=== PATIENT | female | born 1940 | race Caucasian/White ===

== ENCOUNTER 2017-01-03 09:59 | Emergency (ER) | payer MEDICARE, BC ==
[2017-01-03 10:03] VITALS: RESP 20
[2017-01-03] MEDS ORDERED: KETOROLAC 30 MG/ML 1 ML VIAL IM STA (10:21)
[2017-01-03] MEDS ORDERED: HYDROcodone/APAP 5-325MG 1 EACH TAB PO STA (10:22)
--- NOTE | 2017-01-03 10:32 | ED ---
General Adult HPI - General Chief complaint: Extremity Problem,Nontraumatic Stated complaint: knee pain Time Seen by Provider: 01/03/17 10:09 Source: patient Mode of arrival: wheelchair Limitations: no limitations - History of Present Illness Initial comments: 76-year-old female presented for evaluation of left knee pain that started in the night. She denies any trauma yesterday or overexertion and states she has no recollection of an injury while sleeping. She does have a past medical history of prior knee surgery and on her last MRI that showed a left posterior medial meniscus tear. Patient denies any numbness, tingling, lower extremity weakness, discoloration, poikilothermia to the distal extremity. She is unable to fully extend or flex the knee. There is no soft tissue tenderness, redness, erythema. - Related Data Home Medications Medication Instructions Recorded Confirmed Acetaminophen Tab [Tylenol] 1,000 mg PO Q6HR PRN 06/19/15 06/19/15 Areds 1 tab PO DAILY 06/19/15 06/19/15 Calcium Carbonate/Vitamin D3 1 tab PO DAILY 06/19/15 06/19/15 [Calcium 600-Vit D3 400 Tablet] Leg Cramps 1 tab PO DAILY 06/19/15 06/19/15 Propylene Glycol/Peg 400/Pf 1 drop BOTH EYES DAILY 06/19/15 06/19/15 [Systane 0.3-0.4% Eye Drops] Zolpidem Tartrate [Ambien Cr] 12.5 mg PO HS 06/19/15 06/19/15 rOPINIRole HCL [Requip] 2 mg PO HS 06/19/15 06/19/15 Previous Rx's Medication Instructions Recorded Artificial Tears-Hypromellose 1 drops BOTH EYES DAILY bottle 06/20/15 [Artificial Tear Drops] Aspirin EC [Ecotrin] 325 mg PO DAILY tablet. 06/20/15 Calcium Carb-Vit D 500Mg-200Un 1 each PO DAILY@1200 tab 06/20/15 [Oscal 500+D] rOPINIRole HCL [Requip] 2 mg PO HS tab 06/20/15 HYDROcodone/APAP 5-325MG [[place] 1 - 2 tab PO Q6HR PRN #14 tab 01/03/17 5-325] Ibuprofen [Motrin] 800 mg PO Q8HR PRN #20 tab 01/03/17 Allergies Allergy/AdvReac Type Severity Reaction Status Date / Time codeine Allergy Unknown Verified 01/03/17 10:03 Review of Systems ROS Statement: Those systems with pertinent positive or pertinent negative responses have been documented in the HPI. ROS Other: All systems not noted in ROS Statement are negative. Constitutional: Denies: fever, chills, weakness, weight change Eyes: Denies: eye pain, eye discharge ENT: Denies: ear pain, throat pain Respiratory: Denies: cough, dyspnea, wheezes Cardiovascular: Denies: chest pain, palpitations Endocrine: Denies: fatigue, polydipsia, polyuria Gastrointestinal: Denies: abdominal pain, nausea, vomiting Genitourinary: Denies: urgency, dysuria, frequency, hematuria Musculoskeletal: Reports: arthralgia, other (Left medial knee joint line pain). Denies: back pain Skin: Denies: rash, lesions Neurological: Denies: headache, weakness Psychiatric: Denies: anxiety, depression Past Medical History Past Medical History: Chest Pain / Angina Additional Past Medical History / Comment(s): 06/19/[address] [facility] via EMS for mild chest heaviness and L jaw pain which was worse. She had some radiation down R arm, mildly SOB and mildly nauseated. She also has a headache. Other HX: headaches, restless leg syndrome-bilateral thighs cramp at night, cervical arthiritis, bilateral shoulder pain, R knee arthiritis, chest pain in the past with negative stress tests in 2006 and 2010 History of Any Multi-Drug Resistant Organisms: None Reported Past Surgical History: Appendectomy Additional Past Surgical History / Comment(s): Bilateral cataract removal with lens implants, R knee arthroscopies, R knee injections, colonoscopies-normal. Past Anesthesia/Blood Transfusion Reactions: No Reported Reaction Additional Past Anesthesia/Blood Transfusion Reaction / Comment(s): Pt has never recieved blood Past Psychological History: No Psychological Hx Reported Additional Psychological History / Comment(s): Pt resides with her spouse. She is independent. She drives. Smoking Status: Former smoker Past Alcohol Use History: Occasional Additional Past Alcohol Use History / Comment(s): Pt states she started smoking at age 22 yrs (2) and quit in 1994. Past Drug Use History: None Reported - Past Family History Father Family Medical History: Myocardial Infarction ([place]) Additional Family Medical History / Comment(s): Father of a massive [place] at age 69yrs. Mother Family Medical History: Dementia Additional Family Medical History / Comment(s): Mother is alive and is 97yrs old. General Exam Limitations: no limitations General appearance: alert, in no apparent distress Head exam: Present: atraumatic, normocephalic Eye exam: Present: normal appearance, PERRL, EOMI ENT exam: Present: normal exam, normal oropharynx, mucous membranes moist Neck exam: Present: normal inspection. Absent: tenderness, meningismus Respiratory exam: Present: normal lung sounds bilaterally. Absent: respiratory distress, wheezes, rales Cardiovascular Exam: Present: regular rate, normal rhythm. Absent: bradycardia , tachycardia, irregular rhythm GI/Abdominal exam: Present: soft. Absent: distended, tenderness, guarding, rebound, rigid Rectal exam: Present: deferred Extremities exam: Present: other (Decreased range of motion to the left knee in both flexion and extension, tenderness to palpation along the medial aspect of the joint line, no overlying swelling or erythema). Absent: normal inspection, full ROM, tenderness, normal capillary refill, calf tenderness Back exam: Present: normal inspection, full ROM Neurological exam: Present: alert, oriented X3, CN II-XII intact, normal gait. Absent: altered Psychiatric exam: Present: normal affect, normal mood Skin exam: Present: warm, dry, intact Course Vital Signs 01/03/17 10:01 Temperature 97.5 F L Pulse Rate 89 Respiratory 20 Rate Blood Pressure 106/56 O2 Sat by Pulse 99 Oximetry Medical Decision Making - Medical Decision Making 76 year female presented for evaluation of left knee pain with decreased range of motion that started in the middle the night. She denies any injuries yesterday or while she was sleeping. She does have a history of previous knee surgery with and her last MRI showed a left posterior medial knee meniscus tear. On physical examination she has decreased range of motion to flexion and extension and tenderness to palpation along the medial aspect of the joint line. We'll obtain x-ray and provide Toradol and [place] for pain control. Left knee x-ray shows mild changes of osteoarthritis with small concomitant effusion no acute osseous lesions seen and there are remodeling changes in the medial compartment. Given the sinus we'll place patient in knee immobilizer and given prescription for pain control with instructions to follow-up with Dr. wasserman on Thursday. She is further advised to return to this facility if her symptoms should worsen or persist. Patient acknowledged an understanding of this information and agreed with this plan of care. Disposition Clinical Impression: Knee pain, acute, Knee effusion, left Disposition: HOME SELF-CARE Condition: Stable Instructions: Meniscus Tear (ED) Additional Instructions: Please use medication as discussed. Please follow up with family doctor if symptoms have not improved over the next two days. Please return to the emergency room if your symptoms increase or worsen or for any other concerns. Prescriptions: HYDROcodone/APAP 5-325MG [[place] 5-325] 1 - 2 tab PO Q6HR PRN #14 tab PRN Reason: Analgesia Ibuprofen [Motrin] 800 mg PO Q8HR PRN #20 tab PRN Reason: Analgesia Time of Disposition: 11:30
--- NOTE | 2017-01-03 11:07 | XR ---
EXAMINATION TYPE: XR knee complete LT DATE OF EXAM ORDERED: 01/03/2017 10:45 AM HISTORY: Pain. COMPARISON: None. FINDINGS: There is mild medial joint space loss. There is evidence of chondrocalcinosis. No acute os seous lesion is seen. There are remodeling changes in the medial compartment. A small joint effusion is seen. IMPRESSION: MILD CHANGES OF OSTEOARTHRITIS WITH A SMALL CONCOMITANT EFFUSION.
[2017-01-03 11:47] VITALS: BP 103/52; PULSE 82; TEMP 97.2
== END 2017-01-03 11:47 | disposition home or self-care (01) ==
LOC: EC 09:59
DX: M25.562 Pain in left knee (principal); M25.462 Effusion, left knee; M17.12 Unilateral primary osteoarthritis, left knee; G25.81 Restless legs syndrome; Z79.82 Long term (current) use of aspirin; Z88.5 Allergy status to narcotic agent; Z87.891 Personal history of nicotine dependence
CPT/HCPCS: 99283; 96372; 73562; L1830; J1885; 96374

== ENCOUNTER 2017-11-03 00:37 | Emergency (ER) | payer MEDICARE, BC ==
[2017-11-03 00:55] VITALS: RESP 16
[2017-11-03] MEDS ORDERED: SODIUM CHLORIDE 0.9% 500 ML IV ONE (01:11)
[2017-11-03] MEDS ORDERED: DIAZEPAM 5 MG/ML 2 ML INJ IVP STA (01:12)
--- NOTE | 2017-11-03 01:47 | XR ---
EXAMINATION TYPE: XR Hip RT and AP Pelvis DATE OF EXAM: 11/03/2017 COMPARISON: 10/29/2010 HISTORY: Fall and hip pain TECHNIQUE: A single AP view of the pelvis is obtained. Two views of the right hip are obtained. FINDINGS: The pelvic ring is intact. Proximal right femur and hip joint are intact. Sacroiliac joint s appear normal. Right hip joint space is normal. CONCLUSION: No acute abnormality of the pelvis and right hip. No change.
--- NOTE | 2017-11-03 02:03 | CT ---
EXAMINATION TYPE: CT brain dragan pacheco DATE OF EXAM: 11/03/2017 COMPARISON: 06/19/[address] scan HISTORY: fall and hit head on nightstand [address] DLP: 1476.40 mGycm Automated exposure control for dose reduction was used. TECHNIQUE: CT scan of the head and cervical spine are performed without contrast. FINDINGS: Ventricles have normal size. There is no mass effect nor midline shift. There is no sign of intracranial hemorrhage. There is choroid plexus calcification. The calvarium is intact. Cervical vertebra have fairly normal alignment. There is narrowing and spurring at C5-6. The posterio r elements are intact. There is mild multilevel hypertrophic facet arthropathy. There is facet ankylo sis at C3-4. The skull base is intact. I see no fracture. IMPRESSION: Negative CT scan of the brain. No change. Mild spondylotic changes in the cervical spine. No fracture.
[2017-11-03] MEDS ORDERED: KETOROLAC 30 MG/ML 1 ML VIAL IVP STA (02:08)
--- NOTE | 2017-11-03 03:33 | ED ---
Fall HPI - General Chief Complaint: Fall Stated Complaint: Fall Time Seen by Provider: 11/03/17 00:59 Source: EMS Mode of arrival: EMS - History of Present Illness Initial Comments: 77-year-old female patient presents to the emergency department today for evaluation of headache, right-sided neck pain, and right hip pain. Patient reports that 2 days ago she did experience a fall in her bedroom. She states that she got up in the night with the lights out, states that she tripped over the end of the bed and did fall striking her head on the nightstand. She denies any loss of consciousness at the time of injury. States that she felt relatively well and therefore did not seek treatment at that time. She states that over the last couple of days however her symptoms have worsened. She states that she has had a headache throughout the day today. States she has right-sided neck pain that worsens with any type of movement. She is also reporting some right hip pain. She denies any nausea or vomiting. Denies any photophobia, sound sensitivity, blurred vision, or double vision. She denies any numbness, tingling, or pain radiation to her upper extremities. Patient denies any chest pain, shortness of breath, dizziness, weakness, abdominal pain , or difficulties with bowel movements or urination. - Related Data Home Medications Medication Instructions Recorded Confirmed Acetaminophen Tab [Tylenol] 1,000 mg PO Q6HR PRN 06/19/15 06/19/15 Areds 1 tab PO DAILY 06/19/15 06/19/15 Calcium Carbonate/Vitamin D3 1 tab PO DAILY 06/19/15 06/19/15 [Calcium 600-Vit D3 400 Tablet] Leg Cramps 1 tab PO DAILY 06/19/15 06/19/15 Propylene Glycol/Peg 400/Pf 1 drop BOTH EYES DAILY 06/19/15 06/19/15 [Systane 0.3-0.4% Eye Drops] Zolpidem Tartrate [Ambien Cr] 12.5 mg PO HS 06/19/15 06/19/15 rOPINIRole HCL [Requip] 2 mg PO HS 06/19/15 06/19/15 Previous Rx's Medication Instructions Recorded Artificial Tears-Hypromellose 1 drops BOTH EYES DAILY bottle 06/20/15 [Artificial Tear Drops] Aspirin EC [Ecotrin] 325 mg PO DAILY tablet. 06/20/15 Calcium Carb-Vit D 500Mg-200Un 1 each PO DAILY@1200 tab 06/20/15 [Oscal 500+D] rOPINIRole HCL [Requip] 2 mg PO HS tab 06/20/15 HYDROcodone/APAP 5-325MG [[place] 1 - 2 tab PO Q6HR PRN #14 tab 01/03/17 5-325] Ibuprofen [Motrin] 800 mg PO Q8HR PRN #20 tab 01/03/17 Diazepam [Valium] 5 mg PO BID #6 tab 11/03/17 Allergies Allergy/AdvReac Type Severity Reaction Status Date / Time codeine Allergy Unknown Verified 01/03/17 10:03 Review of Systems ROS Statement: Those systems with pertinent positive or pertinent negative responses have been documented in the HPI. ROS Other: All systems not noted in ROS Statement are negative. Past Medical History Past Medical History: Chest Pain / Angina Additional Past Medical History / Comment(s): 06/19/15 Pt presented to [facility] ER via EMS for mild chest heaviness and L jaw pain which was worse. She had some radiation down R arm, mildly SOB and mildly nauseated. She also has a headache. Other HX: headaches, restless leg syndrome-bilateral thighs cramp at night, cervical arthiritis, bilateral shoulder pain, R knee arthiritis, chest pain in the past with negative stress tests in 2006 and 2010 History of Any Multi-Drug Resistant Organisms: None Reported Past Surgical History: Appendectomy Additional Past Surgical History / Comment(s): Bilateral cataract removal with lens implants, R knee arthroscopies, R knee injections, colonoscopies-normal. Past Anesthesia/Blood Transfusion Reactions: No Reported Reaction Additional Past Anesthesia/Blood Transfusion Reaction / Comment(s): Pt has never recieved blood Past Psychological History: No Psychological Hx Reported Smoking Status: Former smoker Past Alcohol Use History: Occasional Past Drug Use History: None Reported - Past Family History Father Family Medical History: Myocardial Infarction ([place]) Additional Family Medical History / Comment(s): Father of a massive [place] at age 69yrs. Mother Family Medical History: Dementia Additional Family Medical History / Comment(s): Mother is alive and is 97yrs old. General Exam Limitations: no limitations General appearance: alert, in no apparent distress, other (This is a well- developed, well-nourished adult female patient in no acute distress. Vital signs upon presentation were temperature 97.9F, pulse 78, respirations 16, blood pressure 121/76, pulse ox 95% on room air.) Head exam: Present: atraumatic, normocephalic, normal inspection Eye exam: Present: normal appearance, PERRL, EOMI. Absent: scleral icterus, conjunctival injection, nystagmus, periorbital swelling ENT exam: Present: normal exam, normal oropharynx, mucous membranes moist, TM's normal bilaterally Neck exam: Present: normal inspection, tenderness (Right-sided neck tenderness) , full ROM. Absent: meningismus, lymphadenopathy Respiratory exam: Present: normal lung sounds bilaterally. Absent: respiratory distress, wheezes, rales, rhonchi, stridor Cardiovascular Exam: Present: regular rate, normal rhythm, normal heart sounds. Absent: systolic murmur, diastolic murmur, rubs, gallop, clicks GI/Abdominal exam: Present: soft, normal bowel sounds. Absent: distended, tenderness, guarding, rebound, rigid Extremities exam: Present: normal inspection, full ROM, tenderness (Tenderness over the right posterior hip), normal capillary refill, other (Skin to the lower extremities is pink, warm, and dry. Cap refills less than 3 seconds. Pedal and posttibial pulses are 2+ and equal bilaterally. No evidence of ecchymosis, erythema, or swelling over the right hip joint. Skin to the upper extremities is pink, warm, and dry. Cap refills less than 3 seconds. Radial pulses are 2+ and equal bilaterally.). Absent: pedal edema, joint swelling, calf tenderness Back exam: Present: normal inspection. Absent: vertebral tenderness Neurological exam: Present: alert, oriented X3, CN II-XII intact, other ( Strength in all 4 extremities is 5/5.) Psychiatric exam: Present: normal affect, normal mood Skin exam: Present: warm, dry, intact, normal color. Absent: rash Course Vital Signs 11/03/17 11/03/17 00:50 03:59 Temperature 97.9 F 97.7 F Pulse Rate 78 79 Respiratory 16 16 Rate Blood Pressure 121/76 119/56 O2 Sat by Pulse 95 95 Oximetry Medical Decision Making - Medical Decision Making 77-year-old female patient presents to the emergency department today for complaints of headache, right-sided neck pain, and right hip pain after a fall couple of days ago. Physical examination did reveal some right-sided neck tenderness. She also did have some posterior hip tenderness on the right. There is no evidence of ecchymosis. No bony abnormalities. CT of the brain and C-spine were obtained and showed no acute osseous abnormalities, no acute intracranial abnormalities. X-ray of the right hip and pelvis was obtained and showed no acute osseous abnormalities. Patient did receive IV Valium and Toradol here in the department as well as 500 mL of normal saline. She did report improvement in her symptoms. I did discuss with her that she more likely has a cervical strain related to the fall. I discussed application of heat with her. They gave her prescription of Valium to take for the next couple of days per she is instructed to follow-up with her primary care physician for recheck soon. She is instructed to return here immediately for any new, worsening, or concerning symptoms. She verbalizes understanding and agrees with this plan. - Radiology Data Radiology results: report reviewed, image reviewed A single AP view of the pelvis and 2 views of the right hip are obtained. Findings show the pelvic ring is intact. Proximal right femur and hip joint are intact. Sacroiliac joints appear normal. Right hip joint spaces normal. Conclusion by Dr. Lao shows no acute abnormality of the pelvis and right hip. No change. CT of the brain and C-spine without contrast are obtained. Report was reviewed in its entirety. Impression by Dr. Lao shows negative computed tomography scan of the brain. No change. Mild spondylotic changes in the cervical spine. No fracture. Disposition Clinical Impression: Neck strain, Contusion, hip Disposition: HOME SELF-CARE Condition: Good Instructions: Cervical Strain (ED), Fall Prevention for Older Adults (ED), Hip Contusion (ED) Additional Instructions: Take medications as directed. Follow-up with her primary care physician for recheck in 1-2 days. Return here immediately for any new, worsening, or concerning symptoms. Prescriptions: Diazepam [Valium] 5 mg PO BID #6 tab Referrals: Sanjay Solo MD [Primary Care Provider] - 1-2 days Time of Disposition: 03:32
[2017-11-03 04:00] VITALS: BP 119/56; PULSE 79; TEMP 97.7
--- NOTE | 2017-11-05 08:39 | CDI ---
Documentation Clarification OP Dear Janette Cardenas, NPC Please do addendum to missing hip contusion specific(LT/RT) location Thank you, Mac Barron Time Piece Repairer If you have any questions, please contact Cephalometric Analyst at [phone] [facility]
== END 2017-11-03 04:05 | disposition home or self-care (01) ==
LOC: EC 00:37
DX: S16.1XXA Strain of muscle, fascia and tendon at neck level, initial encounter (principal); S70.01XA Contusion of right hip, initial encounter; Z79.899 Other long term (current) drug therapy; Z88.5 Allergy status to narcotic agent; Z87.891 Personal history of nicotine dependence; W01.198A Fall on same level from slipping, tripping and stumbling with subsequent striking against other object, initial encounter; Y92.003 Bedroom of unspecified non-institutional (private) residence as the place of occurrence of the external cause
CPT/HCPCS: 99284; 96374; 96375; 96361; 73502; 72125; 70450; J3360; J1885

== ENCOUNTER → 2017-12-10 | Outpatient (CLI) | payer MEDICARE, BC ==
[2017-12-10 10:10] LABS: Basophils % (A) 1 %; Eosinophils # (A) 0.1 k/uL (0-0.7); Eosinophils % (A) 1 %; HCT 40.1 % (34.0-46.0); Lymphocytes # (A) 1.5 k/uL (1.0-4.8); Lymphocytes % (A) 24 %; MCHC 32.4 g/dL (31.0-37.0); MCV 95.9 fL (80.0-100.0); Mean Platelet Volume 7.3; Monocytes # (A) 0.5 k/uL (0-1.0); Monocytes % (A) 8 %; Neutrophils # (A) 3.9 k/uL (1.3-7.7); Neutrophils % (A) 65 %; Platelet Count 220 k/uL (150-450); RBC 4.18 m/uL (3.80-5.40); RDW 13.5 % (11.5-15.5); WBC 6.1 k/uL (3.8-10.6)
[2017-12-10 10:20] LABS: ALT 34 U/L (9-52); AST 26 U/L (14-36); Albumin 4.1 g/dL (3.5-5.0); Alkaline Phosphatase 103 U/L (38-126); Anion Gap 8 mmol/L; Blood Urea Nitrogen 23 mg/dL (7-17); Calcium 9.7 mg/dL (8.4-10.2); Carbon Dioxide 31 mmol/L (22-30); Chloride 102 mmol/L (98-107); Glucose 103 mg/dL (74-99); Sodium 141 mmol/L (137-145); Total Protein 6.8 g/dL (6.3-8.2)
[2017-12-10 10:23] LABS: Potassium 5.8 mmol/L (3.5-5.1)
--- NOTE | 2017-12-10 12:07 | MR ---
MRI CERVICAL SPINE: CLINICAL HISTORY: Cervical disc degenerative disease (M50.30) per order. Headache with neck pain for 6 years per patient. TECHNIQUE: Multiplanar, multisequence imaging of the cervical spine is performed without IV contrast. COMPARISON: MRI cervical spine June 05, 2011. CT cervical spine November 03, 2017. FINDINGS: Sagittal images of the cervical spine show the craniocervical junction to appear within nor mal limits. The cervical and upper thoracic spinal cord is normal in course, caliber, and signal. V ertebral alignment is straightened. There is slight grade 1 retrolisthesis of C5 on C6. The vertebra l body heights are normal. Moderate disc space narrowing C5-C6 level redemonstrated. No significant posterior disc herniations are seen on sagittal images in the cervical spine. There is disc herniatio n T1-T2 level mildly effacing anterior thecal sac on sagittal image 6. The bone marrow signal intensi ty is within normal limits. No suspicious postcontrast enhancement is seen. There is mild to moderate multilevel anterior spurring noted. Axial images at C2-C3 level show uncovertebral facet degenerative changes bilaterally but spinal chucky l is preserved and bilateral neural foramina are patent. Axial images at C3-C4 level show right greater than left uncovertebral facet degenerative changes mario aterally. Spinal canal is preserved. Bilateral neural foramina are patent. Axial images at C4-C5 level show right-sided uncovertebral facet degenerative changes causing mild ri ght-sided neural foraminal narrowing. Left-sided neural foramen is patent. Spinal canal is preserved. Axial images at C5-C6 level show broad-based right spur disc complex mildly effacing anterolateral th ecal sac with left greater than right uncovertebral facet degenerative changes causing mild bilateral neural foraminal narrowing. Axial images at C6-C7 level show uncovertebral facet degenerative changes bilaterally with right para central disc protrusion mildly effacing anterior thecal sac, bilateral neural foramina are patent. Axial images at C7-T1 level are felt within normal limits. There is partial visualization of 1.0 cm right thyroid nodule axial image 1 with only subcentimeter calcified nodule noted on recent CT. Consider thyroid ultrasound follow-up to better evaluate and diamond racterize thyroid gland. IMPRESSION: Straightening of cervical spine with multilevel degenerative changes seen as detailed ab ove. Multilevel bilateral uncovertebral facet arthropathy is noted as detailed above.
== END | disposition home or self-care (01) ==
LOC: RADMRIMAIN 09:41
PROVIDERS: ATTEND Internal Medicine
DX: M47.812 Spondylosis without myelopathy or radiculopathy, cervical region (principal); M46.82 Other specified inflammatory spondylopathies, cervical region; M43.8X2 Other specified deforming dorsopathies, cervical region; I10 Essential (primary) hypertension; E78.2 Mixed hyperlipidemia
CPT/HCPCS: 80053; 85025; 72156; 36415; A9581

== ENCOUNTER 2018-12-14 11:35 | Emergency (ER) | payer MEDICARE, BC ==
[2018-12-14] MEDS ORDERED: IPRATROPIUM-ALBUTEROL 3 ML NEB INHALATION STA ×2 (12:38→14:10)
[2018-12-14] MEDS ORDERED: SODIUM CHLORIDE 0.9% 1,000 ML IV STA (12:38)
[2018-12-14] MEDS ORDERED: methylPREDNISolone SOD SUCCI 125 MG/2 ML VIAL IV STA (12:38)
--- NOTE | 2018-12-14 12:41 | ED ---
General Adult HPI - General Chief complaint: Shortness of Breath Stated complaint: Cough Time Seen by Provider: 12/14/18 12:31 Source: patient, RN notes reviewed Mode of arrival: wheelchair Limitations: no limitations - History of Present Illness Initial comments: Patient 78-year-old female presented to the emergency room today with a chief complaint of increased cough congestion over the last for 5 days. Patient does admit that she's had a tickle back of her throat is having increased cough. States she's had increased congestion. States very little sputum production. Patient denies any other complaints or symptoms. Patient states she is not a smoker. Patient denies any recent fever, chills, shortness of breath, chest pain, back pain, abdominal pain, nausea or vomiting, numbness or tingling, headaches or visual changes, or any other complaints. - Related Data Home Medications Medication Instructions Recorded Confirmed Zolpidem Tartrate [Ambien Cr] 12.5 mg PO HS 06/19/15 12/14/18 rOPINIRole HCL [Requip] 2 mg PO HS 06/19/15 12/14/18 Previous Rx's Medication Instructions Recorded Albuterol Inhaler [Ventolin Hfa 1 - 2 puff INHALATION Q4-6H PRN #1 12/14/18 Inhaler] inhaler Azithromycin [Zithromax Z-pack] 0 mg PO DIRECTED #6 tab 12/14/18 predniSONE 50 mg PO DAILY #5 tab 12/14/18 Allergies Allergy/AdvReac Type Severity Reaction Status Date / Time codeine Allergy Unknown Verified 12/14/18 14:05 Penicillins Allergy Unknown Verified 12/14/18 14:05 Review of Systems ROS Statement: Those systems with pertinent positive or pertinent negative responses have been documented in the HPI. ROS Other: All systems not noted in ROS Statement are negative. Past Medical History Past Medical History: Chest Pain / Angina Additional Past Medical History / Comment(s): 06/19/15 Pt presented to [facility] ER via EMS for mild chest heaviness and L jaw pain which was worse. She had some radiation down R arm, mildly SOB and mildly nauseated. She also has a headache. Other HX: headaches, restless leg syndrome-bilateral thighs cramp at night, cervical arthiritis, bilateral shoulder pain, R knee arthiritis, chest pain in the past with negative stress tests in 2006 and 2010 History of Any Multi-Drug Resistant Organisms: None Reported Past Surgical History: Appendectomy Additional Past Surgical History / Comment(s): Bilateral cataract removal with lens implants, R knee arthroscopies, R knee injections, colonoscopies-normal. Past Anesthesia/Blood Transfusion Reactions: No Reported Reaction Additional Past Anesthesia/Blood Transfusion Reaction / Comment(s): Pt has never recieved blood Past Psychological History: No Psychological Hx Reported Smoking Status: Former smoker Past Alcohol Use History: Occasional Past Drug Use History: None Reported - Past Family History Father Family Medical History: Myocardial Infarction (OR) Additional Family Medical History / Comment(s): Father of a massive OR at age 69yrs. Mother Family Medical History: Dementia Additional Family Medical History / Comment(s): Mother is alive and is 97yrs old. General Exam - General Exam Comments Initial Comments: General: The patient is awake and alert, in no distress, and does not appear acutely ill. Eye: There is normal conjunctiva bilaterally. No signs of icterus. Ears, nose, mouth and throat: There are moist mucous membranes and no oral lesions. Neck: The neck is supple, there is no tenderness or JVD. Cardiovascular: There is a regular rate and rhythm. No murmur, rub or gallop is appreciated. Respiratory: Bilateral expiratory wheeze. respirations are non-labored, breath sounds are equal. No stridor, rales, or rhonchi. Musculoskeletal: Normal ROM, no tenderness. Neurological: A&O x 3. CN II-XII intact, There are no obvious motor or sensory deficits. Coordination appears grossly intact. Speech is normal. Skin: Skin is warm and dry and no rashes or lesions are noted. Psychiatric: Cooperative, appropriate mood & affect, normal judgment. Limitations: no limitations Course Vital Signs 12/14/18 12/14/18 12/14/18 12:17 12:52 13:01 Temperature 98.3 F Pulse Rate 93 77 79 Respiratory 18 Rate Blood Pressure 101/64 O2 Sat by Pulse 100 Oximetry 12/14/18 13:20 Temperature Pulse Rate 71 Respiratory 20 Rate Blood Pressure 139/86 O2 Sat by Pulse 99 Oximetry Medical Decision Making - Medical Decision Making Patient labs been reviewed. Patient's chest x-ray is negative for any acute abnormality. Results were discussed with patient. She does admit to prevent after breathing she will here in emergency room. Patient states feels com fortable being discharged home. Patient advised follow-up family doctor over the next 2 days. Will be given Z-Mack, steroids, albuterol inhaler to go home with. - Lab Data Result diagrams: 12/14/18 12:45 12/14/18 12:45 Lab Results 12/14/18 12/14/18 12/14/18 Range/Units 12:45 12:45 12:45 WBC 2.5 L (3.8-10.6) k/uL RBC 4.43 (3.80-5.40) m/uL Hgb 13.6 (11.4-16.0) gm/dL Hct 41.7 (34.0-46.0) % MCV 94.1 (80.0-100.0) fL MCH 30.7 (25.0-35.0) pg MCHC 32.6 (31.0-37.0) g/dL RDW 13.4 (11.5-15.5) % Plt Count 119 L (150-450) k/uL Neutrophils % 39 % Lymphocytes % 48 % Monocytes % 9 % Eosinophils % 1 % Basophils % 1 % Neutrophils # 1.0 L (1.3-7.7) k/uL Lymphocytes # 1.2 (1.0-4.8) k/uL Monocytes # 0.2 (0-1.0) k/uL Eosinophils # 0.0 (0-0.7) k/uL Basophils # 0.0 (0-0.2) k/uL Sodium 139 (137-145) mmol/L Potassium 4.2 (3.5-5.1) mmol/L Chloride 102 (98-107) mmol/L Carbon Dioxide 28 (22-30) mmol/L Anion Gap 9 mmol/L BUN 19 H (7-17) mg/dL Creatinine 0.76 (0.52-1.04) mg/dL Est GFR (CKD-EPI)AfAm 87 (>60 ml/min/1.73 sqM) Est GFR (CKD-EPI)NonAf 76 (>60 ml/min/1.73 sqM) Glucose 96 (74-99) mg/dL Plasma Lactic Acid [place] 1.4 (0.7-2.0) mmol/L Calcium 9.5 (8.4-10.2) mg/dL Total Bilirubin 0.5 (0.2-1.3) mg/dL AST 43 H (14-36) U/L ALT 38 (9-52) U/L Alkaline Phosphatase 96 (38-126) U/L Total Protein 6.6 (6.3-8.2) g/dL Albumin 4.0 (3.5-5.0) g/dL Urine Color Urine Appearance (Clear) Urine pH (5.0-8.0) Ur Specific [place] (1.001-1.035) Urine Protein (Negative) Urine Glucose (UA) (Negative) Urine Ketones (Negative) Urine Blood (Negative) Urine Nitrite (Negative) Urine Bilirubin (Negative) Urine Urobilinogen (<2.0) mg/dL Ur Leukocyte Esterase (Negative) 12/14/18 Range/Units 13:05 WBC (3.8-10.6) k/uL RBC (3.80-5.40) m/uL Hgb (11.4-16.0) gm/dL Hct (34.0-46.0) % MCV (80.0-100.0) fL MCH (25.0-35.0) pg MCHC (31.0-37.0) g/dL RDW (11.5-15.5) % Plt Count (150-450) k/uL Neutrophils % % Lymphocytes % % Monocytes % % Eosinophils % % Basophils % % Neutrophils # (1.3-7.7) k/uL Lymphocytes # (1.0-4.8) k/uL Monocytes # (0-1.0) k/uL Eosinophils # (0-0.7) k/uL Basophils # (0-0.2) k/uL Sodium (137-145) mmol/L Potassium (3.5-5.1) mmol/L Chloride (98-107) mmol/L Carbon Dioxide (22-30) mmol/L Anion Gap mmol/L BUN (7-17) mg/dL Creatinine (0.52-1.04) mg/dL Est GFR (CKD-EPI)AfAm (>60 ml/min/1.73 sqM) Est GFR (CKD-EPI)NonAf (>60 ml/min/1.73 sqM) Glucose (74-99) mg/dL Plasma Lactic Acid [place] (0.7-2.0) mmol/L Calcium (8.4-10.2) mg/dL Total Bilirubin (0.2-1.3) mg/dL AST (14-36) U/L ALT (9-52) U/L Alkaline Phosphatase (38-126) U/L Total Protein (6.3-8.2) g/dL Albumin (3.5-5.0) g/dL Urine Color Light Yellow Urine Appearance Clear (Clear) Urine pH 6.0 (5.0-8.0) Ur Specific [place] 1.005 (1.001-1.035) Urine Protein Negative (Negative) Urine Glucose (UA) Negative (Negative) Urine Ketones Trace H (Negative) Urine Blood Negative (Negative) Urine Nitrite Negative (Negative) Urine Bilirubin Negative (Negative) Urine Urobilinogen <2.0 (<2.0) mg/dL Ur Leukocyte Esterase Negative (Negative) Disposition Clinical Impression: Acute bronchitis Disposition: HOME SELF-CARE Condition: Good Instructions (If sedation given, give patient instructions): Acute Bronchitis (ED) Additional Instructions: Please use medication as discussed. Please follow-up with family doctor in the next 2 days of symptoms have not improved. Please return to emergency room if the symptoms increase or worsen or for any other concerns. Prescriptions: Albuterol Inhaler [Ventolin Hfa Inhaler] 1 - 2 puff INHALATION Q4-6H PRN #1 inhaler PRN Reason: Cough Azithromycin [Zithromax Z-pack] 0 mg PO DIRECTED #6 tab predniSONE 50 mg PO DAILY #5 tab Is patient prescribed a controlled substance at d/c from ED?: No Referrals: Sanjay oSlo MD [Primary Care Provider] - 1-2 days Time of Disposition: 14:14
[2018-12-14 13:05] LABS: Basophils % (A) 1 %; Eosinophils % (A) 1 %; HCT 41.7 % (34.0-46.0); HGB 13.6 gm/dL (11.4-16.0); Lymphocytes # (A) 1.2 k/uL (1.0-4.8); Lymphocytes % (A) 48 %; MCH 30.7 pg (25.0-35.0); MCHC 32.6 g/dL (31.0-37.0); MCV 94.1 fL (80.0-100.0); Mean Platelet Volume 7.3; Monocytes # (A) 0.2 k/uL (0-1.0); Monocytes % (A) 9 %; Neutrophils % (A) 39 %; Platelet Count 119 k/uL (150-450); RBC 4.43 m/uL (3.80-5.40); RDW 13.4 % (11.5-15.5); WBC 2.5 k/uL (3.8-10.6)
[2018-12-14 13:15] LABS: Calcium 9.5 mg/dL (8.4-10.2); Potassium 4.2 mmol/L (3.5-5.1); Total Bilirubin 0.5 mg/dL (0.2-1.3); Total Protein 6.6 g/dL (6.3-8.2)
[2018-12-14 13:22] LABS: Appearance,Urine Clear (Clear); Bilirubin,Urine Negative (Negative); Blood,Urine Negative (Negative); Color,Urine Light Yellow; Glucose,Urine (UA) Negative (Negative); Ketones,Urine Trace (Negative); Leukocyte Esterase,Urine Negative (Negative); Nitrite,Urine Negative (Negative); Protein,Urine Negative (Negative); Specific Gravity,Urine 1.005 (1.001-1.035); Urobilinogen,Urine <2.0 mg/dL (<2.0)
[2018-12-14 13:34] VITALS: RESP 20
--- NOTE | 2018-12-14 13:53 | XR ---
EXAMINATION TYPE: XR chest 2V DATE OF EXAM: 12/14/2018 COMPARISON: Chest x-ray June 19, 2015 HISTORY: Chest pain, shortness of breath, and cough. TECHNIQUE: Frontal and lateral views of the chest are obtained. FINDINGS: There is chronic parenchymal change without suspicious focal air space opacity, pleural ef fusion, or pneumothorax seen. The cardiac silhouette size is upper limits of normal. Multilevel left lateral spurring in the lower thoracic spine is present. Curvilinear Sclerotic focus right proximal humerus consistent with bone infarct is redemonstrated. IMPRESSION: Chronic parenchymal changes without acute pulmonary process.
[2018-12-14 14:50] VITALS: BP 109/79; PULSE 98; TEMP 98.1
== END 2018-12-14 14:30 | disposition home or self-care (01) ==
LOC: EC 11:35
DX: J20.9 Acute bronchitis, unspecified (principal); G25.81 Restless legs syndrome; M17.11 Unilateral primary osteoarthritis, right knee; Z87.891 Personal history of nicotine dependence; Z88.0 Allergy status to penicillin; Z88.5 Allergy status to narcotic agent; Z79.899 Other long term (current) drug therapy
CPT/HCPCS: 99285; 96374; 36415; 94640 ×2; 80053; 83605; 85025; 81003; 87040; 71046; J2930

== ENCOUNTER → 2019-01-13 | Outpatient (CLI) | payer MEDICARE, BC ==
--- NOTE | 2019-01-13 16:25 | XR ---
Right foot HISTORY: Right foot pain, palpable mass 3 views of the right foot There is a hallux valgus deformity present with associated soft tissue swelling medially. Bone minera lization is reduced. There is no fracture or dislocation. Degenerative change also present at the tar sometatarsal joint of the first digit. IMPRESSION: Hallux valgus deformity as described.
== END ==
LOC: RADXRMAIN 12:01
PROVIDERS: ATTEND Internal Medicine
DX: M20.11 Hallux valgus (acquired), right foot (principal)

== ENCOUNTER → 2019-05-23 | Outpatient (CLI) | payer MEDICARE, BC ==
--- NOTE | 2019-05-24 10:20 | MM ---
Reason for exam: screening (asymptomatic). Last mammogram was performed 3 years and 8 months ago. History: Patient is postmenopausal. Family history of breast cancer in maternal grandmother. Benign excisional biopsy of the left breast, March 17, 2002. Excisional biopsy of the left breast. Physical Findings: A clinical breast exam by your physician is recommended on an annual basis and results should be correlated with mammographic findings. MG 3D Screening Mammo W/Cad Bilateral CC and MLO view(s) were taken. Prior study comparison: September 10, 2015, bilateral MG screening mammo w CAD. September 05, 2014, bilateral MG screening mammo w CAD. There are scattered fibroglandular densities. Benign appearing bilateral calcifications. No suspicious abnormality. Chronic bilateral nipple retraction. New bilateral interstital and skin thickening. ASSESSMENT: Benign, BI-RAD 2 RECOMMENDATION: Routine screening mammogram of both breasts in 1 year. (New interstitial skin thickening bilaterally. Consider CHF or noncardiogenic fluid overload).
== END | disposition home or self-care (01) ==
LOC: RADMAMWWP 14:24
PROVIDERS: ATTEND Internal Medicine
DX: Z12.31 Encounter for screening mammogram for malignant neoplasm of breast (principal)
CPT/HCPCS: 77063; 77067

== ENCOUNTER 2025-01-23 20:09 | Emergency (ER) | payer MEDICARE, BC ==
[2025-01-23 20:15] VITALS: TEMP 97.7
--- NOTE | 2025-01-23 21:45 | CT ---
EXAMINATION TYPE: CT brain wo con DATE OF EXAM: 01/23/2025 9:40 PM COMPARISON: 11/03/2017. CLINICAL INDICATION: Female, 84 years old with history of fall, headache, fall TECHNIQUE: Brain: Axial CT images of the brain were obtained with coronal and sagittal reformats created and rev iewed. Contrast used: None. Oral contrast used: None. CT DLP: 1120.4 mGycm, Automated exposure control for dose reduction was used. FINDINGS: Brain: Extra-axial spaces: No abnormal extra-axial fluid collections. Ventricular system: Dilatation in proportion to cerebral atrophy. Cerebral parenchyma: No acute intraparenchymal hemorrhage or mass effect. The lemus-white junction is well differentiated. Cerebellum: Unremarkable. Mass effect: No evidence of midline shift. Intracranial vasculature: unremarkable Soft tissues: Normal. Calvarium/osseous structures: No depressed skull fracture. Paranasal sinuses and mastoid air cells: Mild scattered paranasal sinus disease. Visualized orbits: Orbital contents are intact. IMPRESSION: No acute intracranial process. [facility], , 01/23/2025 9:43 PM
[2025-01-23 21:52] LABS: Basophils # (A) 0.04 10*3/uL (0.00-0.10); Basophils % (A) 0.7 %; Eosinophils # (A) 0.03 10*3/uL (0.04-0.35); Eosinophils % (A) 0.5 %; HCT 41.2 % (37.2-46.3); HGB 14.2 g/dL (12.0-15.0); Lymphocytes # (A) 2.01 10*3/uL (0.90-5.00); Lymphocytes % (A) 35.1 %; MCH 31.5 pg (27.0-32.0); MCHC 34.5 g/dL (32.0-37.0); MCV 91.4 fL (80.0-97.0); Mean Platelet Volume 9.2 fL (9.5-12.2); Monocytes # (A) 0.46 10*3/uL (0.20-1.00); Neutrophils # (A) 3.17 10*3/uL (1.80-7.70); Neutrophils % (A) 55.5 %; Platelet Count 198 10*3/uL (140-440); RBC 4.51 10*6/uL (4.10-5.20); RDW 13.4 % (11.5-14.5); WBC 5.72 10*3/uL (4.50-10.00)
[2025-01-23 22:07] LABS: ALT 16 U/L (4-34); AST 27 U/L (14-36); African American GFR (CKD) >90 (>60 ml/min/1.73 sqM); Albumin 4.5 g/dL (3.5-5.0); Alkaline Phosphatase 100 U/L (38-126); Anion Gap 14 mmol/L; Blood Urea Nitrogen 13 mg/dL (7-17); Calcium 10.1 mg/dL (8.4-10.2); Carbon Dioxide 23 mmol/L (22-30); Chloride 105 mmol/L (98-107); Glucose 92 mg/dL (74-99); Non-African American GFR(CKD) 85 (>60 ml/min/1.73 sqM); Potassium 4.1 mmol/L (3.5-5.1); Sodium 142 mmol/L (137-145); Total Bilirubin 0.8 mg/dL (0.2-1.3); Total Protein 7.4 g/dL (6.3-8.2)
[2025-01-23 22:10] LABS: Partial Thromboplastin Time 22.9 sec (22.0-30.0); Prothrombin Time 11.1 sec (10.0-12.5)
--- NOTE | 2025-01-23 22:25 | ED ---
Fall HPI - General Chief Complaint: Fall Stated Complaint: Fall, Head Injury Time Seen by Provider: 01/23/25 20:41 Source: patient, family Mode of arrival: wheelchair - History of Present Illness Initial Comments: 84-year-old female with history of of macular degeneration presenting with daughter, Danelle, for a fall two hours ago. Fall was witnessed by pts sister who stated LOC at that time but daughter is unsure of the timeframe. Patient states she was walking on her driveway and tripped but daughter also corrected pts story stating the patient fell in the garage. Daughter states the patient has been drinking a couple cocktails tonight. Denies hx of falls or needing assi stance with ambulation in the past. Denies blood thinners.Denies [place], HTN, CHF, palpitations, CP, SOB, abdominal pain, appetite changes, n/v/d, urinary or bowel movements. - Related Data Home Medications Medication Instructions Recorded Confirmed Zolpidem Tartrate [Ambien Cr] 12.5 mg PO HS 06/19/15 12/14/18 rOPINIRole HCL [Requip] 2 mg PO HS 06/19/15 12/14/18 Previous Rx's Medication Instructions Recorded Albuterol Inhaler [Ventolin Hfa 1 - 2 puff INHALATION Q4-6H PRN #1 12/14/18 Inhaler] inhaler Azithromycin [Zithromax Z-pack (6 0 mg PO DIRECTED #6 tab 12/14/18 tabs)] predniSONE 50 mg PO DAILY #5 tab 12/14/18 Allergies Allergy/AdvReac Type Severity Reaction Status Date / Time codeine Allergy Unknown Verified 01/23/25 20:15 Penicillins Allergy Unknown Verified 01/23/25 20:15 Review of Systems ROS Statement: Those systems with pertinent positive or pertinent negative responses have been documented in the HPI. ROS Other: All systems not noted in ROS Statement are negative. Constitutional: Denies: fever, chills Eyes: Denies: eye pain Respiratory: Denies: cough Cardiovascular: Denies: chest pain, palpitations Endocrine: Denies: fatigue Gastrointestinal: Denies: abdominal pain Neurological: Denies: headache, weakness Past Medical History Past Medical History: Chest Pain / Angina Additional Past Medical History / Comment(s): 06/19/15 Pt presented to [facility] ER via EMS for mild chest heaviness and L jaw pain which was worse. She had some radiation down R arm, mildly SOB and mildly nauseated. She also has a headache. Other HX: headaches, restless leg syndrome-bilateral thighs cramp at night, cervical arthiritis, bilateral shoulder pain, R knee arthiritis, chest pain in the past with negative stress tests in 2006 and 2010 History of Any Multi-Drug Resistant Organisms: None Reported Past Surgical History: Appendectomy Additional Past Surgical History / Comment(s): Bilateral cataract removal with lens implants, R knee arthroscopies, R knee injections, colonoscopies-normal. Past Anesthesia/Blood Transfusion Reactions: No Reported Reaction Additional Past Anesthesia/Blood Transfusion Reaction / Comment(s): Pt has never recieved blood Past Psychological History: No Psychological Hx Reported Past Alcohol Use History: Occasional Past Drug Use History: None Reported - Past Family History Father Family Medical History: Myocardial Infarction ([place]) Additional Family Medical History / Comment(s): Father of a massive [place] at age 69yrs. Mother Family Medical History: Dementia Additional Family Medical History / Comment(s): Mother is alive and is 97yrs old. General Exam Limitations: no limitations General appearance: alert, appears intoxicated Head exam: Present: atraumatic, normocephalic Eye exam: Present: PERRL, EOMI Neck exam: Absent: tenderness, meningismus Respiratory exam: Absent: respiratory distress, wheezes Cardiovascular Exam: Present: regular rate, normal rhythm GI/Abdominal exam: Present: soft. Absent: distended, tenderness Course Vital Signs 01/23/25 01/23/25 20:10 21:46 Temperature 97.7 F Pulse Rate 70 79 Respiratory 18 17 Rate Blood Pressure 178/100 138/84 O2 Sat by Pulse 95 97 Oximetry Medical Decision Making - Medical Decision Making Was pt. sent in by a medical professional or institution (, PA, TIMBER SURVEYOR, urgent care, hospital, or [facility]...) When possible be specific @ -No Did you speak to anyone other than the patient for history (EMS, parent, family, police, friend...)? What history was obtained from this source @ -No Did you review nursing and triage notes (agree or disagree)? Why? @ -I reviewed and agree with nursing and triage notes Were old charts reviewed (outside hosp., previous admission, EMS record, old EKG, old radiological studies, urgent care reports/EKG's, [facility] records)? Report findings @ -No old charts were reviewed Differential Diagnosis? @ -Differential Fall: Hypoglycemia, DKA, hypercapnia, ETOH, overdose, CO poisoning, trauma, myxedema coma, HTN encephalopathy, infection, encephalitis, psychosis, intercranial hemorrhage, hepatic encephalopathy, meningitis, CVA, this is not meant to be an all-inclusive list EKG interpreted by me (3pts min.). @ -As above X-rays interpreted by me (1pt min.). @ -None done CT interpreted by me (1pt min.). @ -CT shows no acute intracranial process. U/S interpreted by me (1pt. min.). @ -None done What testing was considered but not performed or refused? (CT, X-rays, U/S, labs)? Why? @ -None What meds were considered but not given or refused? Why? @ -None Did you discuss the management of the patient with other professionals (professionals i.e. , PA, TIMBER SURVEYOR, lab, RT, psych nurse, social media developer, digital production manager, teacher, loan officer, casework supervisor)? Give summary @ -Case was discussed with ED attending Dr. Howard. Was smoking cessation discussed for >3mins.? @ -No Was critical care preformed (if so, how long)? @ -No Were there social determinants of health that impacted care today? How? (Homelessness, low income, unemployed, alcoholism, drug addiction, transportation, low edu. Level, literacy, decrease access to med. care, retirement, rehab)? @ -No Was there de-escalation of care discussed even if they declined (Discuss DNR or withdrawal of care, Hospice)? DNR status @ -No What co-morbidities impacted this encounter? (DM, HTN, Smoking, COPD, CAD, Cancer, CVA, ARF, Chemo, Hep., AIDS, mental health diagnosis, sleep apnea, morbid obesity)? @ -None Was patient admitted / discharged? Hospital course, mention meds given and route, prescriptions, significant lab abnormalities, going to OR and other pertinent info. @ -CT head and labs were unremarkable. Patient will be discharged home with self-care. Undiagnosed new problem with uncertain prognosis? @ -No Drug Therapy requiring intensive monitoring for toxicity (Heparin, Nitro, Insulin, Cardizem)? @ -No Were any procedures done? @ -No Diagnosis/symptom? @ -Fall Acute, or Chronic, or Acute on Chronic? @ -Acute Uncomplicated (without systemic symptoms) or Complicated (systemic symptoms)? @ -Uncomplicated Side effects of treatment? @ -No Exacerbation, Progression, or Severe Exacerbation? @ -No Poses a threat to life or bodily function? How? (Chest pain, [place], [place], pneumonia, PE, COPD, DKA, ARF, appy, cholecystitis, CVA, Diverticulitis, Homicidal, Suicidal, threat to staff... and all critical care pts) @ -No - Lab Data Result diagrams: 01/23/25 21:45 01/23/25 21:45 Lab Results 01/23/25 01/23/25 01/23/25 Range/Units 21:45 21:45 21:45 WBC 5.72 (4.50-10.00) 10*3/uL RBC 4.51 (4.10-5.20) 10*6/uL Hgb 14.2 (12.0-15.0) g/dL Hct 41.2 (37.2-46.3) % MCV 91.4 (80.0-97.0) fL MCH 31.5 (27.0-32.0) pg MCHC 34.5 (32.0-37.0) g/dL Plt Count 198 (140-440) 10*3/uL MPV 9.2 L (9.5-12.2) fL Immature Gran % (Auto) 0.2 % Neutrophils % 55.5 % Lymphocytes % 35.1 % Monocytes % 8.0 % Eosinophils % 0.5 % Basophils % 0.7 % Immature Gran # 0.01 (0.00-0.04) 10*3/uL Neutrophils # 3.17 (1.80-7.70) 10*3/uL Lymphocytes # 2.01 (0.90-5.00) 10*3/uL Monocytes # 0.46 (0.20-1.00) 10*3/uL Eosinophils # 0.03 L (0.04-0.35) 10*3/uL Basophils # 0.04 (0.00-0.10) 10*3/uL PT 11.1 (10.0-12.5) sec INR 1.0 (<1.2) APTT 22.9 (22.0-30.0) sec Sodium 142 (137-145) mmol/L Potassium 4.1 (3.5-5.1) mmol/L Chloride 105 (98-107) mmol/L Carbon Dioxide 23 (22-30) mmol/L Anion Gap 14 mmol/L BUN 13 (7-17) mg/dL Creatinine 0.59 (0.52-1.04) mg/dL Est GFR (CKD-EPI)AfAm >90 (>60 ml/min/1.73 sqM) Est GFR (CKD-EPI)NonAf 85 (>60 ml/min/1.73 sqM) Glucose 92 (74-99) mg/dL Calcium 10.1 (8.4-10.2) mg/dL Total Bilirubin 0.8 (0.2-1.3) mg/dL AST 27 (14-36) U/L ALT 16 (4-34) U/L Alkaline Phosphatase 100 (38-126) U/L Total Protein 7.4 (6.3-8.2) g/dL Albumin 4.5 (3.5-5.0) g/dL Disposition Clinical Impression: Fall Disposition: HOME SELF-CARE Additional Instructions: Patient will be discharged home with self-care. Patient to follow-up with PCP in 1 to 2 days. Alarm symptoms which would warrant return to ER include severe headache, intractable nausea or vomiting, changes in mentation, or extreme lethargy. Is patient prescribed a controlled substance at d/c from ED?: No Referrals: Chidi Hernandez DO [Primary Care Provider] - 1-2 days Time of Disposition: 22:00
[2025-01-23 23:35] VITALS: BP 143/94; PULSE 88; RESP 18
== END 2025-01-23 23:35 | disposition home or self-care (01) ==
LOC: EC 20:09
DX: S09.90XA Unspecified injury of head, initial encounter (principal); Z88.0 Allergy status to penicillin; Z88.5 Allergy status to narcotic agent; W01.0XXA Fall on same level from slipping, tripping and stumbling without subsequent striking against object, initial encounter
CPT/HCPCS: 36415; 70450; 80053; 85025; 85610; 85730; 99284